=== PATIENT | male | born 1955 | race Hispanic/Latino ===

== ENCOUNTER → 2019-05-15 | Outpatient (CLI) | payer OTHER | END | disposition home or self-care (01) | LOC: OIH 13:19 | PROVIDERS: ATTEND Internal Medicine | DX: S52.614A Nondisplaced fracture of right ulna styloid process, initial encounter for closed fracture (principal); S52.591A Other fractures of lower end of right radius, initial encounter for closed fracture; M24.811 Other specific joint derangements of right shoulder, not elsewhere classified; M24.812 Other specific joint derangements of left shoulder, not elsewhere classified; X58.XXXA Exposure to other specified factors, initial encounter; Y93.89 Activity, other specified; Y92.89 Other specified places as the place of occurrence of the external cause; Y99.8 Other external cause status | CPT/HCPCS: 73030; 73090 ==